=== PATIENT | female | born 1965 | race Caucasian/White ===

== ENCOUNTER → 2016-12-21 | Outpatient (CLI) | payer BC ==
[~2016-12-21] MED LIST: ALBUAER INH; CLON1TAB3 PO; CYCL10TA6 PO; FLUT0.15 NAE; IBUP-103 PO; TRAZ-120 PO
[2016-12-21 14:59] VITALS: BP 107/76; PULSE 67; TEMP 36.7; O2SAT 99
--- NOTE | 2016-12-21 16:14 | Radiation Oncology Follow-Up ---
Radiation Oncology Follow-Up Date of Visit Dec 21, 2016. 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 She received 5130 cGy utilizing hypo-fractionation. Last Edited By: Lucia Wheatley on Nov 23, 2016 14:27 History of Present Illness Ms. Philippe presented abnormal mammogram on 07/11/2016 which revealed several groups of calcifications in the right breast at the 9 o'clock position. She was brought back for a unilateral right diagnostic mammogram which confirmed to groups of indeterminate calcifications within the right breast at the 9 o'clock position. She underwent a stereotactic core biopsy of both lesions in the right breast in the 9 o'clock position on 07/20/2016 which revealed ductal carcinoma in situ that was high-grade with comedonecrosis the tumor was estrogen receptor positive and progesterone receptor negative. The patient was seen by Dr. Sulema Gordon who discussed both mastectomy and breast conserving surgery. The patient elected to undergo a right breast lumpectomy with sentinel lymph node biopsy. The patient underwent a right breast lumpectomy and sentinel lymph node biopsy on 08/30/2016 which revealed ductal carcinoma in situ which measured 6 mm in the greatest dimension; the DCIS was high-grade and there was comedonecrosis present. The margins were negative and the closest margin was 2.5 mm. 3 sentinel lymph nodes were excised and were negative for metastatic carcinoma. The patient was seen in consultation by Dr. Beth Moeller from medical oncology who recommended anti-hormonal therapy. We are now seeing the patient in consultation discuss role of adjuvant radiation therapy. She underwent a CT simulation was found to be a candidate for hypo- fractionation. She completed treatment on 11/17/2016. She received 5130 cGy Interim History She's been doing well over this past month. She denies any pain of the breast. She has noted no masses or tenderness no change of the axilla. She's had no swelling of her arm. She does have a darker discoloration around the center of the breast and especially of the nipple. She also had a darker oval area in the axilla. She is continued use natural care gel regularly. She has seen Dr. Gordon in follow-up and has been scheduled for mammography. She'll be having a mammogram 02/09/2017 of the right breast. She has seen Dr. Moeller and has declined antiestrogen therapy. Allergies Coded Allergies: Cat Dander (Verified Allergy, Unknown, Unknown , 09/20/16) Shellfish (Verified Allergy, Unknown, Edema face/lips/tongue, 09/20/16) Uncoded Allergies: Fig Extract (Adverse Reaction, Mild, Itching , 09/20/16) Home Medications Scheduled PRN Albuterol Sulfate (Proventil Hfa), 2 PUFFS INH Q4 PRN for SOB/Wheezing Clonazepam (Klonopin), 1 MG PO TID PRN for Anxiety Cyclobenzaprine Hcl (Flexeril), 1 TAB PO TID PRN for Muscle Spasms Fluticasone Propionate (Nasal) (Flonase Allergy Relief), 2 SPRAYS ZAMZAM DAILY PRN for allergies Ibuprofen Tab (Advil), 200-600 MG PO Q4H PRN for Pain Trazodone Hcl (Desyrel), 1 TAB PO HS PRN for Sleep Review of Systems Gastrointestinal: Symptoms: WNL Oral: Symptoms: No Problems Respiratory: Symptoms: WNL Urinary: Symptoms: WNL Skin: Symptoms: No Problems Breast: Right Upper Arm Measurement: 24.5 Right Mid Arm Measurement: 23.0 Right Wrist Measurement: 14.0 Left Upper Arm Measurement: 25.0 Left Mid Arm Measurement: 22.4 Left Wrist Measurement: 14.3 Arm Dominence: Left Patient Cosmetic Evaluation: Good Staff Cosmetic Evalaluation: Good Additional Notes: She completed a distress management report and answered "no" to all questions. Physical Exam Vital Signs Date Time Temp Pulse Resp B/P (MAP) Pulse Ox O2 Delivery O2 Flow Rate FiO2 12/21/16 14:59 36.7 67 16 107/76 99 Fatigue: None General Appearance: no apparent distress Eyes: normal inspection, EOMI ENT: normal ENT inspection, hearing grossly normal Neck: no adenopathy, thyroid normal Respiratory/Chest: lungs clear, no respiratory distress, no accessory muscle use Breast: Breast examination reveals hyperpigmentation of the central portion of the right breast as well as the nipple. There is an area of the axilla. There are no masses or tenderness and no axillary adenopathy. There is dry scaling skin on the nipple. Using the [place] score cosmesis she currently has a fair outcome. The left breast showed no masses or tenderness and no axillary adenopathy. Cardiovascular: regular rate, rhythm, no gallop, no murmur Abdomen: non tender Extremities: no pedal edema Neurologic/Psychiatric: no motor/sensory deficits, alert, normal mood/affect Skin: warm/dry Pain Management Side: Bilateral Patient Preferred Pain Scale: 0 - 10 Pain Management Plan She denies pain. Laboratory Studies Laboratory studies were not required. Assessment & Plan Plan: Continue regular follow-up with Dr. Gordon and Dr. Crane. She has declined the antiestrogen therapy. She is scheduled for mammography of the right breast in February. Today we completed a cancer survivorship care plan. A copy of the document was given to the patient. She was also given a survivorship booklet. In reviewing Dr. Gordon's note from 09/21/2016, the patient had wished to pursue tamoxifen therapy and a prescription was given. The patient may review her decision not to take antiestrogen therapy with Dr. Gordon. For the dry skin of nipple recommendation was given for Aquaphor. She was also given Telfa that could be used at bedtime to help to moisturize the skin at the nipple. We asked her to return to our office in 6 months. She was also seen and examined by Dr. Rocha. Assessment & Plan (Attending) ADDENDUM: I agree with note created by Lucia Wheatley PA-C. I reviewed the patient's chart and information with her. I have examined and evaluated the patient. I reviewed relevant clinical information and answered the patient's and /or family's questions. CIAIO LUMITE INJECTOR Total Time In Follow-Up I spent 20 minutes speaking to the patient performing examination. I spent 20 minutes reviewing information, preparing the survivorship document, and completing this note. Total Time (Attending) In Follow-Up I spent 15 minutes examining and counseling the patient. CIAIO LUMITE INJECTOR Copy To Sulema Gordon MD; Hugo Crane III, M.D.
== END | disposition home or self-care (01) ==
LOC: C.ONC 14:46
PROVIDERS: ATTEND Physician Assistant Medical
DX: Z08 Encounter for follow-up examination after completed treatment for malignant neoplasm (principal); Z92.3 Personal history of irradiation; Z85.3 Personal history of malignant neoplasm of breast